=== PATIENT | female | born 1960 | race Caucasian/White ===

== ENCOUNTER 2024-07-19 15:16 | Outpatient (REF) | payer BC, SELFPAY ==
[2024-07-19 17:41] LABS: Vitamin B12 1207 pg/mL (200-900)
[2024-07-20 12:49] LABS: Lyme Abs Screen <0.90 index
== END 2024-07-19 15:17 | disposition home or self-care (01) ==
LOC: HO.LAB 15:16
PROVIDERS: PCP Internal Medicine; Visit Provider Psychiatry & Neurology Neurology
DX: G31.84 Mild cognitive impairment of uncertain or unknown etiology (principal)
CPT/HCPCS: 36415; 82607; 86617; 86618

== ENCOUNTER 2024-11-21 14:33 | Outpatient (REF) | payer BC, SELFPAY ==
[2024-11-21 16:16] LABS: Thyroid Stimulating Hormone 1.72 uIU/mL (0.32-4.0)
--- OUTSIDE RECORDS SUMMARY | 2024-11-21 17:32 | XMS_ITS | Continuity of Care Document ---
Author Organization [facility] ter Address [address] [place] [id number]- Care Team Providers Care Navigation Teacher Name Role Phone Leon HERNANDEZ, Kelvin Haq Primary Care Physician Encounter 11/15/24 - 11/16/[address] [address] Attending Physician: Not on Staff, Attending MD Referring Physician: Not on Staff, Referring MD Encounter Type: SMRI Allergies, Adverse Reactions, Alerts No Known Allergies Medications amitriptyline 10 mg oral tablet 1 tablet = 10 mg, By Mouth, Daily at bedtime, # 30 tablet, 1 Refills, Maintenance, 04/25/14 8:12:42 AM EDT, [id number] Start Date: 04/25/14 Status: Ordered Quantity: 30.0 Unit: tablet Repeat number: 2 Librax 1 capsule, By Mouth, 3 times a day before meals, # 90 capsule, 1 Refills, 02/14/07 4:51:29 PM EDT Start Date: 02/14/07 Stop Date: 04/15/07 Status: Ordered Quantity: 90.0 Unit: capsule Repeat number: 2 Problem List Condition Confirmation Course Effective Dates Status Health St atus Informant IBS - Irritable bowel syndrome Confirmed Active Results Radiology Reports * Exam Date Time Procedure Performing Provider Status 11/15/24 3:[address] PET Neuraceq Brain Imaging Auth (Verified) Notes: (CT PET Neuraceq Brain Imaging) Reason For Exam: Indications: G31.84 - Mild Cognitive Impairment, So Stated;Indications: G31.84 - Mild Cognitive Impairment, So Stated RESULT: CT PET Neuraceq Brain Imaging [facility] PET/CT Imaging VISIT NUMBER :[id number] Patient Name: JOSE TEE Date of : 1960 Date of Exam: 11-15-2024 Referring Physician: Amanuel Platt [address] [place] [address] Drive [address] [place] [address] Exam: PT Neuraceq Brain Imaging CPT 76635 [facility] Examination: PET Neuraceq Brain Imaging Indication: 63-year-old female with mild cognitive impairment. Concern for Alzheimer's disease. Comparison: Technique: A PET scan of the brain was performed using 3-D acquisition approximately 30 to 50 minutes following the intravenous administration of 9.3 mCi of Neuraceq. Image reconstruction was performed with 3 oriented tomograms display to the transaxial, coronal, sagittal planes. CT scan of the brain was performed for attenuation correction. The CT scan was performed with low-dose and without intravenous contrast and therefore is not diagnostic quality. Findings: There is loss of wright-white differentiation most notably in the frontal and parietal lobes but also involving the temporal lobes. Centiloid score 22.3. 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 A positive Neuraseq scan does not establish the diagnosis of Alzheimer's disease or any other cognitive disorder. I, En Zimmer MD, have reviewed the images and report and concur with the resident, Vanessa Goncalves, findings. Electronically Signed By: En Zimmer MD Dictated By: Not on Staff , SELVIN HERNANDEZ Dictated Date/Time: 11/16/24 4:24 pm Reviewed By: Not on Staff , SELVIN HERNANDEZ Signed By: Not on Staff , SELVIN HERNANDEZ Signed Date/Time: 11/16/24 4:24 pm Transcribed By: HERON Transcribed Date/Time: 11/16/24 4:24 pm Patient Care team information Care Team Personnel Name: Kelvin Quintero MD Position: Reference Physician Member Role: PCP Address: [address] [place] [address], [address] Telecom: Care Team Related Persons Name: NAYESTEBAN Insurance Providers Guarantor name: JOSE TEE Health Plan Information #: 1 Payer: [facility] Member Number: NA Policy Number: NA Group Number: NA
--- OUTSIDE RECORDS SUMMARY | 2024-11-21 17:32 | XMS_ITS | Referral Summary ---
Author Organization [facility] Address [address] [place] [address] Care Team Providers Care Round Kiln Drawer Name Role Phone Mega WESLEY MD, Antone B Primary Care Provider Naomi vailable Allergies No known active allergies Medications amitriptyline (ELAVIL) 10 mg tablet Take 20 mg by mouth nightly. 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 11/02 Social History Tobacco Use Types Packs/Day Years Used Date Smoking Tobacco: Never Smokeless Tobacco: Never Alcohol Use Standard Drinks/Week Comments Never 0 (1 standard drink = 0.6 oz pur e alcohol) Comments Unknown Sex and Gender Information Value Date Recorded Sex Assigned at Female 10/30/2021 4:39 PM EST Legal Sex Female 1:40 PM EST Gender Identity Female 10/30/2021 4:39 PM EST Sexual Orientation Straight 10/30/2021 4: 39 PM EST 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 Not on file Not on file Not on file Last Filed Vital Signs Vital Sign Reading Time Taken Comments Blood Pressure 135/85 11/02/2021 2:31 PM EST Pulse 84 11/02/2021 2:31 PM EST Temperature - - Respiratory Rate - - Oxygen Saturation - - Inhaled Oxygen Concentration - - Weight 54.4 kg (120 lb) 11/02/2021 2:31 PM EST Height 157.5 cm (5' 2 ) 11/02/2021 2:31 PM EST Body Mass Index 21.95 11/02/2021 2:31 PM EST Plan of Treatment Not on file Insurance [facility] FEDERAL Care Teams Round Kiln Drawer Relationship Specialty Start Date End Date Ryley Ayoub III, MD [address] [place] [address] PCP - General Internal Medicine 11/02/21
--- OUTSIDE RECORDS SUMMARY | 2024-11-21 17:32 | XMS_ITS | Clinical Summary ---
Author Organization [facility] Address [address] [place] [address] Care Team Providers Care Dog Control Officer Name Role Phone Mega WESLEY MD, Ryley Suárez Primary Care Provider Naomi vailable Allergies No known active allergies Medications amitriptyline (ELAVIL) 10 mg tablet Take 20 mg by mouth nightly. 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 Not on file Not on file Not [...] 11/02/2021 2:31 PM EST Plan of Treatment Health Maintenance Due Date Last Done Comments Cervical Cancer Screening 1960 Cologuard 1960 Colon Cancer Screening 1960 Colonoscopy 1960 FOBT / Fit Test 1960 HIV Screening 1960 HPV and Pap Smear 1960 Pap Smear 1960 Sigmoidoscopy 1960 Pneumococcal Vaccine: 50+ Years (1 of 1 - PCV) 2012 Zoster Vaccines (1 of 2) 2012 COVID-19 Vaccine (4 - season) 2024 09/24/2021, 02/06/2021, 01/16/2021 Influenza Vaccine (#1) 2024 9, 08/31/2018, 06/24/2017, Additional history exists Alcohol/Substance Use Screening 09/19/2024 DTaP,Tdap,and Td Vaccines (2 - Td or Tdap) 03/01/2027 03/01/2017 RSV Vaccine (60+ years old and patients) (1 - 1-dose 75+ series) 2037 Hepatitis B Vaccines Aged Out No long er eligible based on patient's age to complete this topic Insurance [employer] FEDERAL Care Teams Dog Control Officer Relationship Specialty Start Date End Date Ryley Ayoub III, MD [address] [place] [address] PCP - General Internal Medicine 11/02/21
--- OUTSIDE RECORDS SUMMARY | 2024-11-21 17:32 | XMS_ITS | Clinical Summary ---
Author Organization [facility] ity Address [address] [place] [address] Care Team Providers Care Geochemistry Teacher Name Role Phone Ryley Ayoub MD Primary Care Provider [phone] Allergies No known active allergies Medications estradioL (ESTRACE) 0.01 % (0.1 mg/gram) vaginal cream Insert 0.25 g into the vagina 2 (two) times a day. for 2 weeks, then up to three times per week as needed 4 Active amitriptyline (ELAVIL) 10 mg tablet Take 2 tablets (20 mg total) by mouth at bedtime. 3 Active famotidine (PEPCID) 20 mg tablet Take 1 tablet (20 mg total) by mouth 2 (two) times a day. 2 Active cholecalciferol (VITAMIN D-3) 25 mcg (1,000 unit) tablet Take 1 tablet (1,000 Units total) by mouth 1 (one) time each day. Active amitriptyline (ELAVIL) 25 mg tabletIndications :Irritable bowel syndrome with constipation TAKE 1 TABLET BY MOUTH EVERY DAY DIRECTED 90 tablet 1 4 Active Active Problems Problem Noted Date Diagnosed Date Multiple thyroid nodules 11/06/2021 Overview (09/05/2024): 10/2021 found on thyroid US for eval of dysphagia, multiple nodules with smooth margins not highly suspicious, repeat 12 months. 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 Parasomnia 11/10/2018 Sialoliths 11/10/2018 Overview (09/05/2024): Left side Immunizations Name Administration Dates Next Due Influenza, Unspecified 06/23/2021 Pfizer SARS-CoV-2 COVID-19, mRNA, LNP-S, preservative free 09/24/2021 Tdap Tetanus diptheria acell ular pertussis (Boostrix; Adacel) 7yo and older 03/01/2017 Surgical History Surgery Date Site/Laterality Comments OTHER SURGICAL HISTORY PROCEDURE: HI ANESTHESIA EYE IRIDECTOMY BREAST BIOPSY PROCEDURE: BX BREAST; PERC NEEDLE CORE W/IMAG GUID; COMMENT: rt. breast [id number] Medical History Medical History Date Comments Parasomnia 11/10/2018 DX:Parasomnia Sialoliths 11/10/2018 DX:Sialoliths; C OMMENT: Left side Irritable bowel syndrome 11/10/2018 DX:Irri table bowel syndrome; COMMENT: Sees Dr Bear. 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/2018 DX:TMJ arthritis DJD (degenerative joint dise ase), cervical 11/21/2018 DX:DJD (degenerative joint d isease), cervical Scoliosis, thoracogenic 11/21/2018 DX:Scoli osis, thoracogenic Family History Medical History Relation Name Comments Ovarian cancer Aunt Hyperlipidemia Brother 1 MVP Hyperlipidemia Brother 2 MVP CABG Father Coronary artery disease Father Other: CTD Father Heart attack Maternal Grandfather Diabetes Maternal Grandmother Other: pagets Maternal Grandmother Brain cancer Mother Other: Osteogenisis Imperfecta Other Child MVR Heart attack Uncle Relation Name Status Comments Aunt Maternal Brother 1 Brother 2 Father Maternal Grandfather Maternal Grandmother Mother Other Child Paternal Grandfather Paternal Grandmother Uncle Alive Maternal Social History Tobacco Use Types Packs/Day Years Used Date Smoking Tobacco: Never Smokeless Tobacco: Never Alcohol Use Standard Drinks/Week Comments Yes 2 (1 standard drink = 0.6 oz pur e alcohol) Comments Unknown Sex and Gender Information Value Date Recorded Sex Assigned at Not on file Legal Sex Female 10:45 AM EST Gender Identity Not on file Sexual Orientation Not on file Obstetrics History Last Filed Vital Signs Vital Sign Reading Time Taken Comments Blood Pressure 122/74 11/02/2023 1:11 PM EST Pulse 92 03/28/2024 4:40 PM EDT Temperature - - Respiratory Rate - - Oxygen Saturation - - Inhaled Oxygen Concentration - - Weight 52.6 kg (115 lb 14.4 oz) 03/28/2024 4:40 PM EDT Height 157.5 cm (5' 2 ) 03/28/2024 4:40 PM EDT Body Mass Index 21.2 03/28/2024 4:40 PM EDT Plan of Treatment Upcoming Encounters Date Type Department Care Team (Late st Contact Info) Description 04/01/2025 4:00 PM EDT Office Visit Adult Medicine [address] [id number] Ryley Ayoub MD [address] [place] [id number] Health Maintenance Due Date Last Done Comments Pneumococcal Vaccine: 50+ Years (1 of 1 - PCV) 2012 Zoster Vaccines (1 of 2) 2012 Depression Screening 08/17/2022 HIV Screening 08/17/2022 Social Influencers of Health Screening 08/17/2022 Breast Cancer Screening 12/04/2022 12/05/19 21, 11/28/2019, 11/24/2018 COVID-19 Vaccine ( - 2023-2 5 season) 2024 09/24/2021, 02/06/2021, 01/16/2021 Influenza Vaccine (#1) 2024 06/23/2021 DTaP,Tdap,and Td Vaccines (2 - Td or Tdap) 03/01/2027 03/01/2017 Cervical Cancer Screening: HPV 10/18/2028 10/18/2023 Cholesterol Screening (Lipid Panel) 03/29/2029 03/29/2024, 03/29/2024 Colorectal Cancer Screening: Colonoscopy 04/20/2033 04/20/2023 RSV Immunization Patients 60 + Years Old (1 - 1-dose 75+ series) 2037 Hepatitis C Screening Completed 11/21/2018 HIB Vaccines Aged Out No longer eligi ble based on patient's age to complete this topic HPV Vaccines Aged Out No longer eligi ble based on patient's age to complete this topic Hepatitis A Vaccines Aged Out No long er eligible based on patient's age to complete this topic Hepatitis B Vaccines Aged Out No long er eligible based on patient's age to complete this topic IPV Vaccines Aged Out No longer eligi ble based on patient's age to complete this topic MMR Vaccines Aged Out No longer eligi ble based on patient's age to complete this topic Meningococcal ACWY Vaccine Aged Out N o longer eligible based on patient's age to complete this topic Meningococcal B Vacine Aged Out No lo nger eligible based on patient's age to complete this topic Pneumococcal Vaccine: Pediatrics (0 to 5 Years) and At-Risk Patients (6 to 64 Years) Aged Out No longer eligible b ased on patient's age to complete this topic RSV Immunization Patients Under 20 months Aged Out No longer eligible b ased on patient's age to complete this topic Varicella Vaccines Aged Out No longer eligible based on patient's age to complete this topic Procedures Procedure Name Priority Date/Time Associated Diagnosis Comments LIPID PANEL Routine 03/29/2024 HPV Routine 10/18/2023 COLONOSCOPY Routine 04/20/2023 SCR MAMMO BI INCL CAD Routine 12/04/2020 7:49 AM EDT Encounter for screening mammogram for malignant neoplasm of breast HEPATITIS C SCREENING Routine 11/21/2018 from Last 3 Months or Most Recently Relevant to Health Maintenance Results * (ABNORMAL) Lipid panel (03/29/2024) [facility] LDL/HDL Ratio 3 0 - 4 Triglycerides 68 0 - 150 mg/dL Cholesterol 208(A) 0 - 200 mg/dL HDL 76 >=40 mg/dL LDL Cholesterol 119(A) 0 - 100 mg/dL Blood Venous blood specimen / Unknown [facility] Provider LAB BLOOD ORDERABLES Philomena l Result * Cervical Cancer Screening: HPV (10/18/2023) [facility] Cervical Cancer Screening: HPV negative, abstracted [facility] Provider HEALTH MAINTENANCE Final Result * Colonoscopy (04/20/2023) [facility] Colonoscopy normal, abstracted Anatomical Region Laterality Modality Other [facility] Provider HEALTH MAINTENANCE Final Result * SCR MAMMO BI INCL CAD (12/04/2020 7:49 AM EDT) Anatomical Region Laterality Modality Radiographic Heidi ging 11/28/2019 7:38 AM EDT Narrative 12/04/2020 9:07 AM EDT This is a summary report. The complete report is available in the patient's medical record. If you cannot access the medical record, please contact the sending organization for a detailed fax or copy. Full field digital screening mammography, reviewed with CAD and compared to previous. The breast tissue is heterogeneously dense, limiting sensitivity. No suspicious mass, architectural distortion or suspicious calcifications are identified. IMPRESSION: : Dense breast tissue, limiting the sensitivity of mammography. No mammographic evidence of malignancy. BIRADS 1-Negative; N. 5 year breast cancer risk assessment 1.4 % Lifetime breast cancer risk assessment 8.0 % Breast cancer risk category Low (<15%) Procedure Note Tiff Parker MD - 09/07/2022 This is a summary report. The complete report is available in thepatient's medical record. If you cannot access the medical record, pleasecontact the sending organization for a detailed fax or copy. Full field digital screening mammography, reviewed with CAD and comparedto previous. The breast tissue is heterogeneously dense, limitingsensitivity. No suspicious mass, architectural distortion or suspiciouscalcifications are identified. IMPRESSION: : Dense breast tissue, limiting the sensitivity of mammography. Nomammographic evidence of malignancy. BIRADS 1-Negative; N. 5 year breast cancer risk assessment 1.4 % Lifetime breast cancer risk assessment 8.0 % Breast cancer risk category Low (<15%) us Marycarmen Shell MD IMG XR PROCEDURES Final Resu lt * Hepatitis C Screening (11/21/2018) Pathologist [facility] Hepatitis C Screening abstracted us Historical Provider HEALTH MAINTENANCE Final Result from Last 3 Months or Most Recently Relevant to Health Maintenance Care Teams Geochemistry Teacher Relationship Specialty Start Date End Date Ryley Ayoub MD PCP - General Internal Medicine 08/21/21
== END 2024-11-21 14:34 | disposition home or self-care (01) ==
LOC: HO.LAB 14:33
PROVIDERS: PCP Internal Medicine; Visit Provider Psychiatry & Neurology Neurology
DX: G30.9 Alzheimer's disease, unspecified (principal)
CPT/HCPCS: 36415; 84443